=== PATIENT | male | born 1990 | race African-American/Black ===

== ENCOUNTER 2019-09-12 02:27 | Emergency (ER) | payer SELFPAY ==
[~2019-09-12] VITALS: Ht 175.3 cm; Wt 87.7 kg
[2019-09-12 02:33] VITALS: Ht 175.3 cm; Wt 87.7 kg
[2019-09-12 06:24] VITALS: BP 138/90
== END 2019-09-12 06:24 | disposition home or self-care (01) ==
LOC: ED 02:27
DX: J45.901 Unspecified asthma with (acute) exacerbation (principal)
CPT/HCPCS: J7512; J7613; J7644